=== PATIENT | male | born 1960 | race American Indian/Alaskan Native ===

== ENCOUNTER 2018-10-18 18:54 | Emergency (ER) | payer MEDICARE ==
[2018-10-18] MEDS ORDERED: D50W (25GM) Syringe IV ONE (19:00)
[2018-10-18] MEDS ORDERED: INTROPIN DRIP 800 MG/D5W 250 ML IV ONE (19:00)
[2018-10-18] MEDS ORDERED: D50W (25GM) Vial IV ONE (19:00)
[2018-10-18] MEDS ORDERED: ADRENALIN ONE (19:00)
--- NOTE | 2018-10-18 19:35 | Emergency Department Report ---
HPI - General Time Seen by Provider: 10/18/18 19:21 - HPI HPI: Room 20 The patient is a 58-year-old male presenting with chief complaint of cardiac arrest. Per EMS the patient was a witnessed arrest at approximately 18:21. EMS arrived on scene at 18:29 to find the patient in asystole. ACLS protocols were initiated and the patient was intubated via ET tube. Chest compressions were were initiated and the patient received 2 rounds of epinephrine, 1 round of sodium bicarbonate one amp of D50 after his glucose was found to be in the 20s. Upon arrival to the ED the patient had return of spontaneous circulation only transiently. The patient soon arrested again and ACLS protocols were continued. There was no return of spontaneous circulation. Patient Location: Cardiovascular system Duration: [See above] Quality: Cardiac arrest Severity: Severe Modifying factors: [see above] Context: [see above] Mode of transportation: [not driving] ED Past Medical Hx - Past Medical History Hx Hypertension: Yes Hx Congestive Heart Failure: Yes Hx Renal Disease: Yes (renal insufficiency; CKD stage 3) Hx Arthritis: Yes Additional medical history: "gout", sepsis - Surgical History Additional Surgical History: "left knee surgery" - Social History Smoking Status: Never Smoker Substance Use Type: None - Medications Home Medications: Home Medications Medication Instructions Recorded Confirmed Last Taken Type Allopurinol [Zyloprim] 100 mg PO BID 06/27/14 03/12/16 11/26/14 12:00 History Multivitamin [Multi-Vitamin Daily] 1 tab PO DAILY 06/27/14 03/12/16 11/26/14 12:00 History cloNIDine [Catapres] 0.2 mg PO BID 06/27/14 03/12/16 03/12/16 22:00 History 0.2mg Gabapentin 800 mg PO BID 10/30/14 03/12/16 12/12/14 12:00 History Sertraline [Zoloft] 50 mg PO QDAY 10/30/14 03/12/16 11/26/14 12:00 History Famotidine [Pepcid] 20 mg PO BID #60 tablet 03/21/16 Unknown Rx amLODIPine [Norvasc] 10 mg PO DAILY #30 tab 03/21/16 Unknown Rx oxyCODONE /ACETAMINOPHEN [Percocet 1 tab PO Q6HR PRN #10 tablet 03/21/16 Unknown Rx 5/325 mg] predniSONE [Deltasone] 10 mg PO QDAY #3 tab 03/21/16 Unknown Rx Cyclobenzaprine [Flexeril] 10 mg PO TID PRN #30 tablet 07/30/18 Unknown Rx oxyCODONE /ACETAMINOPHEN [Percocet 1 tab PO Q6HR PRN #15 tablet 07/30/18 Unknown Rx 5/325] ED Review of Systems ROS: Stated complaint: CARDIAC ARREST Other details as noted in HPI Comment: Unobtainable due to pts medical conditions Physical Exam - Physical Exam Physical Exam: GENERAL: The patient is well-developed well-nourished male lying on stretcher being bagged via ET tube. [] HEENT: Normocephalic. Atraumatic. NECK: Supple. Trachea midline CHEST/LUNGS: Breath sounds equal bilaterally with bagging HEART/CARDIOVASCULAR: Regular. There is no tachycardia. There is a 5/6 systoli c murmur (initial exam). After arrest and asystole on monitor, no heart sounds ABDOMEN: Abdomen is soft, nontender. Patient has normal bowel sounds. There is no abdominal distention. SKIN: There is no rash. There is no edema. There is no diaphoresis. NEURO: GCS 3T MUSCULOSKELETAL: There is no evidence of acute injury. - Central Line Placement Right Femoral Consent Obtained: emergent situation Time Out Performed: No Patient Placed on Monitor/Pulse Ox: Yes MD Prep: mask, gown, gloves Central Line Prep: Chlorhexidine scrub Ultrasound Used for Placement: No Central Line Lumen Inserted: triple Bloods Obtained for Lab: No Central Line Position: good blood return Dressing Applied: Tegaderm Patient Tolerated Procedure: no complications Complications: none ED Medical Decision Making - Differential Diagnosis cardiac arrest Critical care attestation.: If time is entered above; I have spent that time in minutes in the direct care of this critically ill patient, excluding procedure time. ED Disposition Clinical Impression: Cardiac arrest Disposition: DC-20 Is pt being admited?: No Does the pt Need Aspirin: No Condition: Poor Time of Disposition: 19:28 (patient )
== END 2018-10-19 03:30 ==
LOC: ED 18:54
DX: I46.9 Cardiac arrest, cause unspecified (principal); M19.90 Unspecified osteoarthritis, unspecified site; I13.0 Hypertensive heart and chronic kidney disease with heart failure and stage 1 through stage 4 chronic kidney disease, or unspecified chronic kidney disease; N18.3 Chronic kidney disease, stage 3 (moderate); I50.9 Heart failure, unspecified
CPT/HCPCS: 36556; 82962; 99285; J0171; J1265